=== PATIENT | female | born 1950 | race Caucasian/White ===

== ENCOUNTER 2023-12-17 08:47 | Emergency (ER) | payer OTHER, SELFPAY ==
--- NOTE | ~2023-12-17 | XR_ITS ---
EXAMINATION: XR CHEST CLINICAL INFORMATION: Angioedema COMPARISON: None available. TECHNIQUE: Frontal view of the chest was obtained. FINDINGS: Lung volumes are symmetric. No focal consolidation is seen. No evidence of pneumothorax, pleural effusion, or pulmonary edema. Cardiac size is within normal limits. Calcification is present at the aortic arch. No acute osseous findings are seen. XR/XR chest 1V IMPRESSION: No acute cardiopulmonary findings. Electronically signed by: Brendon Recinos MD 12/17/2023 09:24 AM EDT
[2023-12-17 08:57] VITALS: BP 168/76; BP 180/80; PULSE 102; PULSE 96; RESP 18; TEMP 37.1; O2SAT 96; O2SAT 97; BMI 28.4
--- NOTE | 2023-12-17 09:05 | ECG_ITS ---
Test Reason : ANGIOEDEMA Blood Pressure : / mmHG Vent. Rate : 085 BPM Atrial Rate : 085 BPM P-R Int : 164 ms QRS Dur : 096 ms QT Int : 398 ms P-R-T Axes : 042 -46 050 degrees QTc Int : 473 ms Sinus rhythm with occasional Premature ventricular complexes Incomplete right bundle branch block Left anterior fascicular block Left ventricular hypertrophy ( R in aVL , [place] product , Romhilt-Epps ) Cannot rule out Septal infarct (cited on or before 11-NOV-2018) Abnormal ECG When compared with ECG of 11-NOV-2018 13:48, Premature ventricular complexes are now Present Referred By: Maria Del Carmen Joy Electronically Signed By:GRACIELA BATEMAN
--- NOTE | 2023-12-17 09:12 | ED_ITS ---
HPI - General Adult General Chief complaint: General Medical Stated complaint: SWOLLEN LIPS,SORE THROAT,DIFF SWALLOWING XDAYS Time Seen by Provider: 12/17/23 09:00 Source: patient and EMS Mode of arrival: EMS Limitations: no limitations History of Present Illness ED Provider: DR. Joy HPI narrative: 72-year-old female came in for evaluation of lip swelling and difficulty swallowing for the past 3 days. history of hypertension on lisinopril for many years did not take her medicine today yet, patient also known to have seasonal allergy complaining of postnasal drip, for the past 3 days been having difficulty swallowing and feel her lips are swollen this morning patient looked in the mirror noticed significant swelling of her lips and tongue called 911 for further evaluation, no change in her daily routine, no new medication, no new food. Related Data Previous Rx's ?Medication ?Instructions ?Recorded amlodipine 5 mg tablet 5 mg PO DAILY #20 tabs 12/17/23 Allergies Allergy/AdvReac Type Severity Reaction Status Date / Time gabapentin [GABAPENTIN] Allergy Intermediate NAUSEA & Verified 12/17/23 09:04 VOMITING morphine Allergy Unknown Hives Verified 12/17/23 09:04 penicillin G Allergy Unknown Hives Verified 12/17/23 09:04 Penicillins [PENICILLINS] Allergy Unknown UNKNOWN Verified 12/17/23 09:04 Sulfa (Sulfonamide Allergy Unknown UNKNOWN Verified 12/17/23 09:04 Antibiotics) [SULFA (SULFONAMIDE ANTIBIOTICS)] Review of Systems 2 Review of Systems: All other systems are reviewed and are negative Constitutional: Reports as per HPI and Reports no additional constitutional complaints Eyes: Reports as per HPI and Reports no additional eye complaints Reports system reviewed and no additional complaints, except as documented Cardiovascular: Reports as per HPI and Reports no additional cardiovascular complaints Respiratory: Reports as per HPI and Reports no additional respiratory complaints Gastrointestinal: Reports as per HPI and Reports no additional gastrointestinal complaints Genitourinary: Reports no additional female genitourinary complaints Musculoskeletal: Reports no additional musculoskeletal complaints Skin/Breast: Reports system reviewed and no additional complaints, except as docu Psychiatric: Reports no additional psychiatric complaints Endocrine: Reports no additional endocrine complaints Hematologic/Lymphatic: Reports no additional hematologic/lymphatic complaints Allergic/Immunologic: Reports no additional allergic/immunologic complaints Reports system reviewed and no additional complaints, except as documented and Reports Abnormal speech present [facility] Social History Social History Advance Directives: No Advance Directives Information Provided: Yes Physical Exam ED Vital Signs: Vital Signs - 24 hr 12/17/23 08:57 12/17/23 09:32 12/17/23 11:20 Temperature 98.8 F Pulse Rate 96 79 Respiratory Rate 18 16 Blood Pressure 168/76 H 139/71 188/80 H Pulse Oximetry 96 96 Oxygen Delivery Method Room Air Room Air BMI result Body Mass Index 28.4 Vital signs have been reviewed and appear to be correct. Blood pressure elevated. Heart rate normal. Respiratory rate normal. Temperature normal. Oxygen saturation normal. Appearance: Alert. Oriented X3. No acute distress. Head: Normal external exam. Normocephalic. Atraumatic. No [place] signs noted. No raccoon eyes noted , swollen lips, uvula is midline, no stridor. Eyes: PERRLA. EOMI. Conjunctiva and sclera normal. Eyelids normal. ENT: TM's Normal. Pharynx normal. Uvula midline. Moist mucous membranes. No trismus noted. No drooling noted. No muffled voice noted. Neck: Normal inspection. Neck supple. FROM. No adenopathy. Thyroid Normal. No meningeal signs. No neck mass noted. CVS: Normal heart rate and rhythm. Heart sound normal. No murmurs noted. Pulses normal throughout. Respiratory: No respiratory distress. Painless inspiration. Breath sounds normal. No wheezes/rales/rhonchi noted. Chest nontender. No accessory muscle usage noted or decreased air movement noted. Abdomen: Soft and nontender. Bowel sounds normal in all 4 quadrants. No distention noted. No organomegaly noted. No visible injury noted. Back: No CVA tenderness. Full range of motion noted. Skin: Skin warm and dry. Normal skin color. Normal skin turgor. No rashes/lesions/lacerations noted. Extremities: No lower extremity edema. Extremities exhibit normal range of motion. Extremities nontender. Neuro: Oriented X 3. Cranial nerve exam: II-XII are grossly intact No motor deficit. No sensory deficit. Reflexes normal. Course Reevaluation(s) Reevaluation #1: 72-year-old female came in with spontaneous live swelling and difficulty swallowing for the past 4 days, patent airway, patient's symptoms might be attributed to lisinopril that the patient takes for high blood pressure. Received IV fluids, Benadryl, Solu-Medrol with improvement patient in the emergency department able to swallow both fluids and solid foods. 1. I was inclined to hospitalize the patient for observation but patient can not stay because she has animals at home and can not be hospitalized. 2. Will discontinue lisinopril replace it with amlodipine patient was instructed to follow-up with PCP to manage her chronic hypertension. 3. Leukocytosis seems patient had previous leukocytosis in her previous visits, no obvious source of infection, no dysuria, no frequency urination patient unable to give urine sample to check, x-ray of the chest showed no infiltrate or pneumonia. 4. Dysphagia will refer the patient to our GI Clinic for further evaluation. Time: 13:05 Medications Administered Discontinued Medications Generic Name Dose Route Start Last Admin Trade Name Freq PRN Reason Stop Dose Admin Amlodipine Besylate 5 mg 12/17/23 09:11 12/17/23 09:32 Amlodipine Besylate 5 Mg Tablet PO 12/17/23 09:12 5 mg ONCE ONE Administration Protocol Diphenhydramine HCl 25 mg 12/17/23 09:11 12/17/23 09:32 Diphenhydramine Hcl 50 Mg/Ml Vial IVPUSH 12/17/23 09:12 25 mg ONCE ONE Administration Famotidine 20 mg 12/17/23 09:11 12/17/23 09:32 Famotidine/Pf 20 Mg/2 Ml Vial IVPUSH 12/17/23 09:12 20 mg ONCE ONE Administration Sodium Chloride 1,000 mls @ 999 mls/hr 12/17/23 09:05 12/17/23 09:29 Ns IV 12/17/23 10:05 999 mls/hr .Q1H1M ONE Administration Methylprednisolone Sodium Succinate 125 mg 12/17/23 09:11 12/17/23 09:31 Methylprednisolone Sod Succ 125 Mg/2 Ml Vial IVPUSH 12/17/23 09:12 125 mg ONCE ONE Administration Medical Decision Making Differential Diagnosis Differential Diagnoses: The differential diagnosis associated with the presentation includes ( Angioedema, allergic reaction, dysphagia, electrolyte derangement, severe anemia.) Admission/Observation Consideration of admission/observation: Escalation of care including admission/observation considered Lab Data MDM Lab Attestation statement: I reviewed the patient's lab results. 12/17/23 09:26 09/02/24 09:26 Labs: Lab Results 12/17/23 Range/Units 09:26 WBC 13.9 H (4.8-10.8) X10*3/uL RBC 4.63 (4.20-5.50) X10*6/uL Hgb 13.2 (12.0-16.0) g/dl Hct 38.5 (37.0-47.0) % MCV 83.2 (80.0-98.0) fL MCH 28.5 (27.0-33.0) pg MCHC 34.3 (31.0-35.0) g/dl RDW 14.7 (11.0-16.0) % Plt Count 258 (160-400) X10*3/uL MPV 10.7 (9.4-12.3) fL Immature Gran % (Auto) 0.5 H (0.0-0.4) % Neut % (Auto) 82.1 H (45-73) % Lymph % (Auto) 10.1 L (20-40) % [place] % (Auto) 6.5 (2-11) % Eos % (Auto) 0.6 (0-4) % Baso % (Auto) 0.2 (0-2) % Lymph # (Auto) 1.4 (1.2-4.9) X10*3/uL [place] # (Auto) 0.9 (0.1-1.2) X10*3/uL Eos # (Auto) 0.1 (0.0-0.4) X10*3/uL Baso # (Auto) 0.0 (0.0-0.2) X10*3/uL Abs Immat Gran (auto) 0.07 H (0.00-0.03) X10*3/uL Absolute Neuts (auto) 11.4 H (2.0-8.3) x10*3/uL Absolute Nucleated RBC 0.000 (0.0-0.012) X10*3/uL Nucleated RBC % (auto) 0.0 (0.0-0.2) /100WBC Sodium 139 (135-145) mmol/L Potassium 3.1 L (3.3-5.1) mmol/L Chloride 101 (96-108) mmol/L Carbon Dioxide 25 (22-29) mmol/L Anion Gap 16 (12-20) BUN 13 (9-16) mg/dL Creatinine 0.77 (0.5-1.4) mg/dL Estim Creat Clear Calc 62.5 Estimated GFR > 60 Random Glucose 213 H (60-115) mg/dL Calcium 10.3 H (8.4-10.2) mg/dL Total Bilirubin 0.8 (0.0-1.0) mg/dL Direct Bilirubin 0.3 (0.0-0.5) mg/dL AST 14 (5-31) U/L ALT 9 (0-31) U/L Alkaline Phosphatase 52 (39-117) U/L Troponin I High Sens 7.0 (<3.5-17.0) ng/L Total Protein 7.6 (6.5-8.0) g/dL Albumin 4.0 (3.5-5.0) g/dL Lipase 21 (8-78) U/L Independent Interpretation I performed an independent interpretation of an: Plain X-Ray ( chest: No acute intrathoracic pathology.) Radiology Impression Discussion of test interpretation with radiology: I have reviewed the radiologist's reading. Discharge Plan Discharge Clinical Impression: Angioedema, Dysphagia Patient Disposition: Home, Self-Care Instructions: Angioedema (ED), Dysphagia (ED) Additional Instructions: stop taking your lisinopril for blood pressure and take amlodipine as prescribed. Follow-up with Dr. Hsieh as instructed. Follow-up with PCP to further manage your blood pressure. Prescriptions: New amlodipine 5 mg tablet 5 mg PO DAILY Qty: 20 0RF Referrals: Dick Hsieh MD [Physician] - Print Language: Syrian
[2023-12-17] MEDS: 0.9 % Sodium Chloride 1,000 ML 999 ML IV (09:29)
[2023-12-17 09:30] LABS: MANUAL DIFF FLAG NO
[2023-12-17] MEDS: methylPREDNISolone Sod Succ 125 MG/2 ML VIAL IVPUSH (09:31)
[2023-12-17 09:32] VITALS: BP 139/71
[2023-12-17] MEDS: amLODIPine Besylate 5 MG TABLET PO (09:32)
[2023-12-17] MEDS: diphenhydrAMINE HCL 50 MG/ML VIAL 25 MG IVPUSH (09:32)
[2023-12-17] MEDS: Famotidine/PF 20 MG/2 ML VIAL IVPUSH (09:32)
[2023-12-17 09:33] LABS: Basophils Percent Auto 0.2 % (0-2); Eosinophils Absolute Auto 0.1 X10*3/uL (0.0-0.4); Eosinophils Percent Auto 0.6 % (0-4); Hematocrit 38.5 % (37.0-47.0); Hemoglobin 13.2 g/dl (12.0-16.0); Imm Gran Abs Auto 0.07 X10*3/uL (0.00-0.03); Imm Gran Pct Auto 0.5 % (0.0-0.4); Lymphocytes Absolute Auto 1.4 X10*3/uL (1.2-4.9); Lymphocytes Percent Auto 10.1 % (20-40); Mean Corpuscular HGB Conc 34.3 g/dl (31.0-35.0); Mean Corpuscular Hemoglobin 28.5 pg (27.0-33.0); Mean Corpuscular Volume 83.2 fL (80.0-98.0); Mean Platelet Volume 10.7 fL (9.4-12.3); Monocytes Absolute Auto 0.9 X10*3/uL (0.1-1.2); Monocytes Percent Auto 6.5 % (2-11); Neutrophils Absolute Auto 11.4 x10*3/uL (2.0-8.3); Neutrophils Percent Auto 82.1 % (45-73); Platelet Count 258 X10*3/uL (160-400); Red Blood Count 4.63 X10*6/uL (4.20-5.50); Red Cell Distribution Width 14.7 % (11.0-16.0); White Blood Count 13.9 X10*3/uL (4.8-10.8)
[2023-12-17 09:47] LABS: Alanine Aminotransferase 9 U/L (0-31); Alkaline Phosphatase 52 U/L (39-117); Anion Gap 16 (12-20); Aspartate Amino Transferase 14 U/L (5-31); Bilirubin Direct 0.3 mg/dL (0.0-0.5); Bilirubin Total 0.8 mg/dL (0.0-1.0); Blood Urea Nitrogen 13 mg/dL (9-16); Calcium 10.3 mg/dL (8.4-10.2); Carbon Dioxide 25 mmol/L (22-29); Chloride 101 mmol/L (96-108); Creatinine Clr Calc Pharmacy 62.5; Estimated Glomerular Filt Rate > 60; Glucose Random 213 mg/dL (60-115); Lipase 21 U/L (8-78); Potassium 3.1 mmol/L (3.3-5.1); Sodium 139 mmol/L (135-145); Total Protein 7.6 g/dL (6.5-8.0)
[2023-12-17 11:20] VITALS: BP 188/80; PULSE 79; RESP 16; O2SAT 96
[2023-12-17] MEDS: Potassium Chloride Packet 20 MEQ PACKET 40 MEQ PO (13:38)
[2023-12-17] MEDS: Potassium Chloride/H20 10 MEQ/100 ML PIGGYBACK 100 MEQ IV (13:38)
[2023-12-17 14:34] VITALS: BP 140/78; PULSE 84; RESP 16; TEMP 36.6; O2SAT 99
[2023-12-17 15:53] VITALS: BP 140/78; PULSE 84; RESP 16; TEMP 36.6; O2SAT 99
== END 2023-12-17 15:54 | disposition home or self-care (01) ==
PROVIDERS: Emergency Provider Emergency Medicine
DX: T78.3XXA Angioneurotic edema, initial encounter (principal); Y92.9 Unspecified place or not applicable; R13.10 Dysphagia, unspecified; I10 Essential (primary) hypertension; R09.82 Postnasal drip; K13.0 Diseases of lips
CPT/HCPCS: 36415; 71045; 80048; 80076; 83690; 84484; 85025; 93005; 96361; 96374; 96375; 99284; J1200; J2919; J3480

== ENCOUNTER 2024-08-06 16:13 | Emergency (ER) | payer MEDICARE, MEDICAID, SELFPAY ==
[2024-08-06 16:29] VITALS: BP 187/67; BP 244/120; PULSE 75; PULSE 92; RESP 18; TEMP 36.5; O2SAT 97; O2SAT 98; BMI 32.6
[2024-08-06 16:37] VITALS: BP 167/80; PULSE 81; RESP 16; RESP 18; TEMP 36.2; O2SAT 97
--- NOTE | 2024-08-06 17:29 | MHC.EDTECH ---
This pct answered patients call whalen and the patient states if a provider doesn't come in right now im ripping off neck brace, i advised the patient now to because she has not been cleared by provider, the patient proceeded to rip neck brace off. RN Aware
--- NOTE | 2024-08-06 17:45 | ED.FALL ---
HPI - Fall General Chief Complaint: Fall Stated Complaint: fall yesterday at 3pm. back pain Time Seen by Provider: 08/06/24 17:12 History of Present Illness HPI Narrative: Patient is a 73-year-old female status post accidental fall at 15:00. Patient was trying to walk up the stairs and her knees buckle she fell on her knee. Hitting her head. Has a history of chronic back pain. Has a history of being on oxycodone and gabapentin. Patient's gabapentin and oxycodone was recently DC by her primary physician. Patient denies any bowel urinary incontinence. There is no focal weakness. Patient is from home. Has history of chronic knee pain chronic back pain. No focal weakness Related Data Previous Rx's ?Medication ?Instructions ?Recorded amlodipine 5 mg tablet 5 mg PO DAILY #20 tabs 12/17/23 Allergies Allergy/AdvReac Type Severity Reaction Status Date / Time gabapentin [GABAPENTIN] Allergy Intermediate NAUSEA & Verified 08/06/24 16:33 VOMITING morphine Allergy Unknown Hives Verified 08/06/24 16:33 penicillin G Allergy Unknown Hives Verified 08/06/24 16:33 Penicillins [PENICILLINS] Allergy Unknown UNKNOWN Verified 08/06/24 16:33 Sulfa (Sulfonamide Allergy Unknown UNKNOWN Verified 08/06/24 16:33 Antibiotics) [SULFA (SULFONAMIDE ANTIBIOTICS)] Review of Systems Review of Systems: Positive knee pain Positive back pain PMFSH Past Medical History Attestation statement: The following information was validated with the patient. Social History Social History Smoked in Last 30 Days: Yes Advance Directives: No Advance Directives Information Provided: Yes Physical Exam Vital Signs: Vital Signs: Last Vital Signs Temp 97.2 F 08/06/24 16:37 Pulse 81 08/06/24 16:37 Resp 16 08/06/24 16:37 BP 167/80 H 08/06/24 16:37 Pulse Ox 97 08/06/24 16:37 O2 Del Method Room Air 08/06/24 16:37 BMI result Body Mass Index 32.6 Appearance: Alert. Oriented X3. No acute distress. Eyes: Pupils equal, round and reactive to light. ENT: Pharynx normal. Neck: Normal inspection. Neck supple. No lymph nodes noted. No crepitus CVS: Normal heart rate and rhythm. Pulses normal. Normal S1 and S2 Respiratory: No respiratory distress. Breath sounds normal. No Wheezing. No rales Abdomen: Soft and nontender. No rigidity. No distention. good BS x4 Skin: Skin warm and dry. Normal skin color. Normal skin turgor. Extremities: No lower extremity edema. Neurovascular intact to all extremities. No Lacerations. No Rash Neuro: Oriented X 3. No motor deficit. No sensory deficit. Moving all extermities. No slurred speech Medical Decision Making Medical Decision Making MDM Narrative: Patient left the emergency department without completing treatment. Did not want additional imaging. Walked out. Did not want additional labs. Differential Diagnosis Differential Diagnoses: The differential diagnosis associated with the presentation includes Fracture, bleed, electrolyte disturbance Admission/Observation Consideration of admission/observation: Escalation of care including admission/observation considered Discharge Plan Discharge Clinical Impression: Fall Patient Disposition: Left W/O Completing Treatment Prescriptions: No Action amlodipine 5 mg tablet 5 mg PO DAILY Qty: 20 0RF Discharge Date/Time: 08/06/24 19:06
--- NOTE | 2024-08-06 17:47 | PC.NURSE ---
Patient removed c-collar after explaining the risk benefits.
--- NOTE | 2024-08-06 19:05 | PC.NURSE ---
Patient not found in room to complete treatment. Patient apparently left the department without notifying staff.
== END 2024-08-06 19:06 | disposition left against medical advice (07) ==
PROVIDERS: Emergency Provider Emergency Medicine Emergency Medical Services; PCP Nurse Practitioner Family
DX: Z91.81 History of falling (principal)
CPT/HCPCS: 99282; 99283; 99284